=== PATIENT | male | born 1965 | race Asian ===

== ENCOUNTER 2020-08-25 13:42 | Emergency (ER) | payer OTHER, SELFPAY ==
[~2020-08-25] VITALS: Ht 170.2 cm; Wt 81.8 kg
[2020-08-25] MEDS ORDERED: POVIDONE-IODINE 10% 120 ML SOLUTION TP ONE (14:30)
[2020-08-25] MEDS ORDERED: BUPIVACAINE HCL/PF 0.25% 10 ML VIAL SQ ONE (14:30)
[2020-08-25 14:33] LABS: GLUCOSE,POINT OF CARE 283 MG/DL (70-110)
[2020-08-25] MEDS ORDERED: INSU100V36 SQ (14:53)
[2020-08-25] MEDS ORDERED: INSU3INS10 SQ (14:53)
[2020-08-25] MEDS ORDERED: AMLO-257 PO (14:53)
[2020-08-25] MEDS ORDERED: ATOR40TA28 PO (14:53)
[2020-08-25] MEDS ORDERED: VALS80TA2 PO (14:53)
[2020-08-25] MEDS ORDERED: CANA1TAB4 PO (14:53)
[2020-08-25 15:21] VITALS: BP 125/71
== END 2020-08-25 15:28 | disposition home or self-care (01) ==
LOC: EMS 14:05
DX: L02.415 Cutaneous abscess of right lower limb (principal); E11.65 Type 2 diabetes mellitus with hyperglycemia
CPT/HCPCS: 10060; 82962; 99283; J3490; 82948

== ENCOUNTER 2020-08-27 10:29 | Emergency (ER) | payer OTHER ==
[~2020-08-27] VITALS: Ht 170.2 cm; Wt 84.1 kg
[~2020-08-27 10:29] MED LIST: AMLO-257 PO; ATOR40TA28 PO; CANA1TAB4 PO; INSU100V36 SQ; INSU3INS10 SQ; VALS80TA2 PO
[2020-08-27 10:53] VITALS: BP 131/74
== END 2020-08-27 11:22 | disposition home or self-care (01) ==
LOC: EMS 10:33
DX: Z48.00 Encounter for change or removal of nonsurgical wound dressing (principal); E11.9 Type 2 diabetes mellitus without complications; Z79.4 Long term (current) use of insulin
CPT/HCPCS: 99281; 99282; Z7502

== ENCOUNTER 2020-08-29 14:53 | Emergency (ER) | payer OTHER ==
[~2020-08-29] VITALS: Ht 170.2 cm; Wt 84.1 kg
[2020-08-29 14:55] VITALS: BP 140/69
== END 2020-08-29 16:02 | disposition home or self-care (01) ==
LOC: EMS 14:57
DX: L02.415 Cutaneous abscess of right lower limb (principal); E11.9 Type 2 diabetes mellitus without complications; E78.00 Pure hypercholesterolemia, unspecified; I10 Essential (primary) hypertension
CPT/HCPCS: 99281; Z7502

== ENCOUNTER 2024-08-09 15:35 | Emergency (ER) | payer SELFPAY ==
[~2024-08-09] VITALS: Ht 170.2 cm; Wt 84.5 kg
[2024-08-09 16:16] VITALS: BP 161/96; PULSE 84; RESP 18; TEMP 98.2; O2SAT 99
[2024-08-09 16:46] LABS: GLUCOMETER DEV NAME(LOC) ERT.6; GLUCOSE,POINT OF CARE 423 MG/DL (70-110)
[2024-08-09] MEDS ORDERED: SODIUM CHLORIDE 0.9% 1,000 ML IV ONE (17:15)
[2024-08-09] MEDS ORDERED: INSULIN REGULAR, HUMAN 100 UNITS/ML SQ ONE (17:15)
[2024-08-09] MEDS ORDERED: OXYC-38 PO ×2 (17:25→18:21)
[2024-08-09] MEDS: SODIUM CHLORIDE 0.9% 1,000 ML IV ONE (17:45)
[2024-08-09 17:46] LABS: BASOPHILS % (AUTO) 0.7 % (0.0-2.0); EOSINOPHILS % (AUTO) 1.5 % (1.0-6.0); HEMATOCRIT 51.3 % (41-53); HEMOGLOBIN 17.1 g/dL (13.5-17.5); LYMPHOCYTES # (AUTO) 1.6 K/uL (1.0-4.8); LYMPHOCYTES % (AUTO) 25.8 % (22.0-44.0); MEAN CORPUSCULAR HEMOGLOBIN 27.2 pg (26.0-34.0); MEAN CORPUSCULAR HGB CONC 33.4 G/dL (31.0-37.0); MEAN CORPUSCULAR VOLUME 81 fL (80-100); MONOCYTES # (AUTO) 0.4 K/uL (0.1-1.0); MONOCYTES % (AUTO) 6.4 % (2.0-9.0); NEUTROPHILS # (AUTO) 4.2 K/uL (1.8-7.7); NEUTROPHILS % (AUTO) 65.6 % (40.0-70.0); PLATELET COUNT (AUTO) 250 K/uL (150-450); RED BLOOD CELL COUNT(AUTO) 6.31 MIL/uL (4.50-5.90); RED CELL DISTRIBUTION WIDTH 13.5 % (11.5-14.5); WHITE BLOOD COUNT (AUTO) 6.3 K/uL (4.5-11.0)
[2024-08-09 17:47] LABS: ANION GAP 10 mmol/L (8-16); CALCIUM, TOTAL 9.3 mg/dL (8.8-10.5); CARBON DIOXIDE 27 mmol/L (22-29); CHLORIDE 100 mmol/L (98-107); CREATININE 0.76 mg/dL (0.60-1.30); GLOMERULAR FILTR. RATE CALC > 60 mL/min (>60); GLUCOSE,RANDOM 387 mg/dL (70-110); POTASSIUM 4.3 mmol/L (3.5-5.1); SODIUM SERUM 137 mmol/L (136-145); UREA NITROGEN, BLOOD 12 mg/dL (7-18)
== END 2024-08-09 19:08 | disposition home or self-care (01) ==
LOC: EMS 15:45
DX: M25.562 Pain in left knee (principal); E11.9 Type 2 diabetes mellitus without complications; E78.00 Pure hypercholesterolemia, unspecified; I10 Essential (primary) hypertension; Z79.4 Long term (current) use of insulin; Z79.84 Long term (current) use of oral hypoglycemic drugs; Z79.899 Other long term (current) drug therapy
CPT/HCPCS: 99284; 96360; 80048; 82962; 85025; 36415; 73562; J7030